=== PATIENT | male | born 1965 | race Caucasian/White ===

== ENCOUNTER 2019-04-27 13:05 | Inpatient (IN) | payer BC ==
[~2019-04-27] VITALS: Ht 191 cm; Wt 80.7 kg
--- NOTE | ~2019-04-27 | EKG ---
[place], [place] ELECTROCARDIOGRAM REPORT NAME: VENANCIO PLUNKETT UNIT #: [id number] ROOM: 506 DOCTOR: LIOR DRAFT REPORT BIRTHDATE: [birth year] [facility] Test Date: 2019-04-27 Test Time: 13:08:03 Pat Name: VENANCIO PLUNKETT Department: Room: 506 Gender: M Gaming Floor Supervisor: : 1965 Requested By: HAYLIE KUHN Order Number: [id number] Reading MD: Angel Pires MD Measurements Intervals [place] Rate: 94 P: 34 LA: 156 QRS: -34 QRSD: 85 T: 59 QT: 341 QTc: 427 Interpretive Statements Sinus rhythm Probable left atrial enlargement Left axis deviation Consider inferoposterior infarct, old No previous ECG available for comparison Electronically Signed On 04-28-2019 4:45:05 PDT by Angel Pires MD CM:EKGRPT:ELECTROCARDIOGRAM REPORT [id number] HAYLIE GUERRA DRAFT REPORT HAYLIE KUHN DO
--- NOTE | ~2019-04-27 | EKG ---
[place], [place] ELECTROCARDIOGRAM REPORT NAME: VENANCIO PLUNKETT UNIT #: [id number] ROOM: 506 DOCTOR: LIOR DRAFT REPORT BIRTHDATE: [birth year] [facility] Test Date: 2019-04-27 Test Time: 18:59:30 Pat Name: VENANCIO PLUNKETT Department: Room: 506 Gender: M Repairer And Checker: Pa Sims : 1965 Requested By: HAYLIE KUHN Order Number: [id number] Reading MD: Angel Pires MD Measurements Intervals [place] Rate: 109 P: 50 MS: 147 QRS: -30 QRSD: 89 T: 50 QT: 327 QTc: 441 Interpretive Statements Sinus tachycardia Multiple premature complexes, vent \T\ supraven Probable left atrial enlargement Left ventricular hypertrophy Electronically Signed On 04-29-2019 4:20:11 PDT by Angel Pires MD CM:EKGRPT:ELECTROCARDIOGRAM REPORT [id number] HAYLIE GUERRA DRAFT REPORT HAYLIE KUHN DO
--- NOTE | ~2019-04-27 | EKG ---
[place], [place] ELECTROCARDIOGRAM REPORT NAME: VENANCIO PLUNKETT UNIT #: ROOM: DOCTOR: LIOR DRAFT REPORT BIRTHDATE: [birth year] [facility] Test Date: 2019-04-27 Test Time: 13:08:03 Pat Name: VENANCIO PLUNKETT Department: Patient ID: ELOH- Room: Gender: Duck Farmer: : 1965 Requested By: HAYLIE KUHN Order Number: [id number] Reading MD: Measurements Intervals [place] Rate: 94 P: 34 NE: 156 QRS: -34 QRSD: 85 T: 59 QT: 341 QTc: 427 Interpretive Statements Sinus rhythm Probable left atrial enlargement Left axis deviation RSR' in V1 or V2, right VCD or RVH No previous ECG available for comparison CM:EKGRPT:ELECTROCARDIOGRAM REPORT [id number] HAYLIE GUERRA DRAFT REPORT HAYLIE KUHN DO
--- NOTE | ~2019-04-27 | ST ---
[place], [place] EXERCISE STRESS TEST REPORT NAME: VENANCIO PLUNKETT UNIT #: [id number] ROOM: 506 DOCTOR: ROSEANNE CASTRO BIRTHDATE: [birth year] DOS: 04/28/2019 INDICATION: Chest pain, coronary artery disease. PROTOCOL: Exercise SPECT myocardial perfusion imaging, Primitivo protocol. Baseline EKG showed sinus rhythm with PVCs. There is normal axis with normal intervals. No resting ST or T-wave abnormalities. Resting pulse is 107, baseline blood pressure was 142/80. The patient exercised for a total of 6 minutes and 30 seconds, achieving a peak heart rate of 158, which is 95% of the predicted maximum. Peak blood pressure is 164/88. The patient reported no symptoms of chest pain. Total workload achieved was 7 METs, below average for age. Stress EKG showed no evidence of ischemia and no arrhythmias were noted. Frequent PVCs were observed. IMPRESSION: 1. No evidence of ischemia on stress EKG. 2. Normal blood pressure response to exercise. 3. Delayed heart rate recovery. 4. Frequent premature ventricular contractions. 5. Below average functional capacity. 6. Nuclear images to be reported separately. Dr. ROSEANNE CASTRO MD CM:STRESS:EXERCISE STRESS TEST REPORT [id number] ROSEANNE CASTRO
--- NOTE | ~2019-04-27 | CON ---
[place], [place] REPORT OF CONSULTATION NAME[id number] UNIT #: [id number] ROOM: 506 DOCTOR: ROSEANNE CASTRO BIRTHDATE: [birth year] DOS: 04/28/2019 CARDIOLOGY CONSULTATION REQUESTING PHYSICIAN: Dr. Elver Peter. REASON FOR CONSULTATION: Chest pain, history of coronary artery disease. HISTORY OF PRESENT ILLNESS: The patient is a 54-year-old gentleman with known coronary artery disease, with an ID in 07/2017, details are unknown and apparently in 08/2017, there was either thrombosis or stenosis of the stent that needed to be "cleaned out." The patient has been on aspirin and clopidogrel since that time. That was done in [place], [place]. He continues to smoke. He presented yesterday after an episode of squeezing chest pain on the left side of the chest that occurred at rest. It was nonradiating. He denied any associated symptoms of shortness of breath, diaphoresis or nausea. It lasted about 4-5 minutes. It had resolved by the time he decided to come to be evaluated. Subsequently, there was some residual sharp pain that would last a couple of seconds, but the squeezing had resolved. Troponins were negative x 3 and the EKG showed no acute changes. A stress test has been ordered by the primary team for this morning. On my evaluation today, he feels well and denies any complaints. He states he was placed on rivaroxaban at some point in the past, but never took it. Additionally, he said he was recently seen in [place], was told he had atrial fibrillation in the Emergency Department, but apparently left AMA. He has been in sinus tachycardia with PVCs and PACs here on the telemetry. REVIEW OF SYSTEMS: Complete review of systems negative except as described above. PAST MEDICAL HISTORY: Coronary artery disease, status post PCI in 07/2017 as described above, unknown what vessel, question of atrial fibrillation recently diagnosed, currently in sinus rhythm, hypertension, tobacco abuse, alcohol abuse. PAST SURGICAL HISTORY: Inguinal hernia repair. SOCIAL HISTORY: Smokes a pack a day. Drinks 4 times a week. Denies drug use. 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 FAMILY HISTORY: Father in his mid-30s from heart attack. Mother in her 60s from some type of heart issues. ALLERGIES: No known drug allergies. HOME MEDICATIONS: Include aspirin 81 mg daily, clopidogrel 75 mg daily, metoprolol succinate 100 mg daily. [place], [place] REPORT OF CONSULTATION NAME: VENANCIO PLUNKETT UNIT #: [id number] [place]OM: [facility] [place] DOCTOR: ROSEANNE CASTRO BIRTHDATE: [birth year] PHYSICAL EXAMINATION: VITAL SIGNS: He is afebrile, pulse 107 irregular, respirations 24, blood pressure 142/106, saturating 93% on room air. GENERAL APPEARANCE: A well-appearing middle-aged male, sitting up in bed, in no distress. ENT: Moist mucous membranes. NECK: Supple. JVP normal. No carotid bruits. RESPIRATORY: Lungs are clear. CARDIOVASCULAR: Tachycardic with a normal rate, occasional extra beats. No murmurs. ABDOMEN: Positive bowel sounds. Soft, nontender. No organomegaly. EXTREMITIES: Warm and well perfused. There is no edema. Moves all extremities. SKIN: No lesions or rashes. NEUROLOGIC: Nonfocal. LABORATORY DATA: Hemoglobin 16.4, platelets 265. Potassium 4.0, creatinine 0.73. Hemoglobin A1c 5.0. LFTs are normal. Troponin negative x 3. LDL cholesterol of 99. Chest x-ray was unremarkable. EKG shows sinus tachycardia with a rate of about [address] or T-wave abnormalities. There were occasional PVCs noted. Serial EKGs showed no changes. IMPRESSION: 1. Chest pain, somewhat atypical in nature. 2. Known coronary artery disease, with history of myocardial infarction in 2017 with PCI, with relatively early stent occlusion requiring repeat PCI. Details of vessel unknown. 3. Questionable history of atrial fibrillation, currently maintaining sinus rhythm. 4. Hypertension. 5. Tobacco abuse. 6. Alcohol abuse. RECOMMENDATIONS: 1. Agree with myocardial perfusion imaging study today. There has been no evidence of acute ID. 2. We will continue his current medications. 3. Would add a statin. 4. Smoking cessation and moderation of alcohol consumption was strongly encouraged to the patient. Further recommendations pending outcome of stress test and the echocardiogram, which have been ordered. Thank you for the consultation. [place], [place] REPORT OF CONSULTATION NAME: VENANCIO PLUNKETT UNIT #: [id number] ROOM: [facility] DOCTOR: ROSEANNE CASTRO BIRTHDATE: [birth year] Dr. ROSEANNE CASTRO MD CM:CONSTR:REPORT OF CONSULTATION 6 04/28/19 1943 interface
--- NOTE | ~2019-04-27 | EKG ---
[place], [place] ELECTROCARDIOGRAM REPORT NAME: VENANCIO PLUNKETT UNIT #: [id number] ROOM: 506 DOCTOR: LIOR DRAFT REPORT BIRTHDATE: [birth year] [facility] Test Date: 2019-04-27 Test Time: 17:36:58 Pat Name: VENANCIO PLUNKETT Department: Room: 506 Gender: M Director Adult: Komal Mayberry : 1965 Requested By: HAYLIE KUHN Order Number: [id number] Reading MD: Angel Pires MD Measurements Intervals [place] Rate: 107 P: 41 IA: 150 QRS: -38 QRSD: 90 T: 58 QT: 322 QTc: 430 Interpretive Statements Sinus tachycardia Left axis deviation No previous ECG available for comparison Electronically Signed On 04-29-2019 4:11:51 PDT by Angel Pires MD CM:EKGRPT:ELECTROCARDIOGRAM REPORT [id number] HAYLIE GUERRA DRAFT REPORT HAYLIE KUHN DO
[2019-04-27 13:11] VITALS: BP 141/96
[2019-04-27 13:31] LABS: BASO % 0.5 % (0.0-1.0); EOS # 0.2 10*3/uL (0.0-0.4); EOS % 2.7 % (1.0-4.0); HEMOGLOBIN 17.3 g/dl (14.0-18.0); LYMPH % 40.2 % (27.0-41.0); MEAN CELL VOLUME 95.9 fl (80.0-94.0); MEAN CORPUSCULAR HGB 32.5 pg (27.0-31.0); MEAN CORPUSCULAR HGB CONC 33.9 g/dl (33.0-37.0); MEAN PLATELET VOLUME 9.3 fl (9.6-12.3); MONO # 0.7 10*3/uL (0.1-1.0); MONO % 9.3 % (3.0-9.0); NEUT # 3.5 10*3/uL (2.3-7.9); NEUT % 46.8 % (47.0-73.0); PLATELET COUNT AUTOMATED 278 10*3/uL (130-400); RED BLOOD COUNT 5.32 10*6/uL (4.50-5.90); RED CELL DISTRI WIDTH 13.2 % (0-14.5); WHITE BLOOD COUNT 7.5 10*3/uL (4.8-10.8)
[2019-04-27 13:42] LABS: ACT PARTIAL THROMBO TIME 27.2 SECONDS (20.0-32.1); INTERNATIONAL NORM RATIO 0.9 (2.0-3.5)
[2019-04-27 13:53] LABS: ALBUMIN 3.5 gm/dl (3.1-4.5); ALKALINE PHOSPHATASE 70 U/L (45-117); BUN 5 mg/dl (7-24); CHLORIDE 109 mmol/L (98-107); SGOT/AST 17 IU/L (3-35); SGPT/ALT 21 U/L (12-78); SODIUM 141 mmol/L (136-145); TOTAL PROTEIN 7.6 gm/dL (6.4-8.2)
[2019-04-27 13:54] LABS: TROPONIN I < 0.015 ng/ml (<0.045)
[2019-04-27 13:55] LABS: LIPASE 161 U/L (73-393)
[2019-04-27 14:15] LABS: URINE AMPHETAMINES < 1000 (1000ng/ml); URINE BARBITURATES < 200 (200ng/ml); URINE BENZODIAZEPINES < 200 (200ng/ml); URINE CANNABINOIDS (THC) < 50 (50ng/ml); URINE COCAINE < 300 (300ng/ml); URINE METHADONE < 300 (300ng/ml); URINE OPIATES < 300 (300ng/ml)
[2019-04-27 14:16] LABS: BILIRUBIN NEGATIVE (NEGATIVE); BLOOD TRACE-LYSED (NEGATIVE); CLARITY CLEAR (CLEAR); COLOR YELLOW (YELLOW); GLUCOSE NEGATIVE (NEGATIVE); KETONE NEGATIVE (NEGATIVE); LEUKO ESTERASE NEGATIVE (NEGATIVE); NITRITE NEGATIVE (NEGATIVE); PH 5.5 (5.0-9.0); SPECIFIC GRAVITY <= 1.005 (1.005-1.030); UROBILINOGEN 0.2 E.U./dl (0.2-1.0)
[2019-04-27 14:20] LABS: URINE PHENCYCLIDINE < 25 (25ng/ml)
[2019-04-27 14:22] LABS: RBC 0-2 rbc/hpf (0-2)
[2019-04-27 15:00] VITALS: BP 128/88
--- NOTE | 2019-04-27 15:10 | NUR ---
SMELL OF CIG SMOKE IN DEPT AND APPEARS TO BE COMING FROM THIS PT'S ROOM. PT DENIES SMOKING. ORALIA NOTIFIED, SPOKE WITH PT AND PLACED PT'S CIGS IN A BIO BAG ON HIS CHART.
--- NOTE | 2019-04-27 15:36 | NUR ---
Nicotine patch applied to left shoulder. Patient requested food and was given. ED director in patient's room.
--- NOTE | 2019-04-27 15:45 | NUR ---
WHEN PT WAS TAKEN TO IMPATIENT ROOM THIS RN NOTED A HOLE IN THE SHEET FROM A CIG. PT CONTINUES TO DENY THAT HE WAS SMOKING IN HIS ROOM .
[2019-04-27 16:15] VITALS: BP 151/93
--- NOTE | 2019-04-27 16:15 | NUR ---
A 54, admitted to , under the services of SANDIE Lacey DO with a diagnosis of CHEST PAIN. Chief complaint is CHEST PAIN. Patient arrived via ambulatory from ER. Monitor applied. Initial assessment completed. Vital signs taken and recorded. SANDIE LACEY DO notified of admission to the unit. Orders received. See assessment for past medical history, medications and allergies. Patient and/or family oriented to unit. [facility]. Clothing/patient valuable form completed. CRISTIAN PERRY
[2019-04-27 16:30] VITALS: BP 136/85
[2019-04-27] MEDS ORDERED: GOOD SENSE ASPI81 M1 PO (17:33)
[2019-04-27] MEDS ORDERED: PLAVIX75 M1 PO (17:34)
[2019-04-27] MEDS ORDERED: METOPROLOL SUC100 M1 PO (17:35)
--- NOTE | 2019-04-27 19:26 | NUR ---
PT HAS NO IDEA WHY HE DOESN'T TAKE THE XARELTO ANYMORE. STATES HE TAKES PLAVEX HIS BLOOD THINNER.
[2019-04-27 20:00] VITALS: BP 154/90
--- NOTE | 2019-04-27 22:46 | NUR ---
ATIVAN WAS GIVEN PER ORDER AFTER IV RESTARTED, FOR ANXIETY. RESTORIL WAS GIVEN FOR INSOMNIA AND NORCO GIVEN PER ORDER FOR HEADACHE PAIN. SEE MAR.
--- NOTE | 2019-04-27 22:48 | NUR ---
IV discontinued IN LEFT ANTECUBITAL BECAUSE OF PAIN. Site symptomatic. Pressure applied. Sterile dressing applied. QASIM BALL
--- NOTE | 2019-04-27 23:00 | NUR ---
IV WAS RESTARTED AND THAT IS WHEN THE ATIVAN WAS GIVEN IV PUSH.
--- NOTE | 2019-04-27 23:40 | NUR ---
PT. WANTING TO GO HOME AND COME BACK IN AM FOR STRESS TEST. EXPLAINED TO PATIENT THAT IF HE WENT HOME NOW HE WOULD NOT BE ABLE TO HAVE STRESS TEST. PT. EXPLAINED IN DETAIL TO PATIENT THAT IT WAS IN HIS BEST INTEREST TO STAY AND HAVE THE STRESS TEST DONE NOW THAT IT IS ALL SCHEDULED. PATIENT AGREED TO STAY THE NIGHT.
[2019-04-28] VITALS: BP 142/100; BP 142/106
--- NOTE | 2019-04-28 00:17 | NUR ---
CALLED DR. LEI AND NOTIFIED HIM OF BP 142/100 AND PT. UNSURE IF HE HAD TAKEN HIS METOPROLOL OR NOT ORDER RECEIVED FOR 5MG IV HYDRALAZINE.
--- NOTE | 2019-04-28 01:00 | NUR ---
PT. AWAKEND ATIVAN RESTORIL EFFECTIVE. HAD TO AWAKEN TO GIVEN IV HYDRALAZINE FOR ELEVATED BP.
--- NOTE | 2019-04-28 02:00 | NUR ---
24 HR chart check completed.
--- NOTE | 2019-04-28 02:49 | NUR ---
ALERT AND WALKING IN HALLWAY AND BACK TO ROOM FEELING VERY ANXIOUS AND WANTED MORE ANTIVAN. ATIVAN GIVEN PER ORDER FOR ANXIETY SEE MAR.
--- NOTE | 2019-04-28 03:15 | NUR ---
PT. AWAKE SITTING UP IN BED LOOKING AT HIS CELL PHONE PT. STATED "CAN YOU TAKE MY IV OUT AND LET ME GO HAVE A CIGARETTE, ALL I WANT IS JUST ONE CIGARETTE, AND THEN I'LL BE BACK. I DON'T UNDERSTAND WHY YOU CAN'T LET ME DO THAT." EXPLAINED TO PATIENT HE'S NOT ALLOWED OUTSIDE TO SMOKE. PT. NOT HAPPY ABOUT NOT BEING ABLE TO GO OUT AND SMOKE WAS TRYING TO ARGUE WITH THIS RN. ATIVAN NOT EFFECTIVE FOR PT. ANXIETY. PT. WANTS TO BE ABLE TO BE DISCHARGED EARLIER ENOUGHT TODAY SO HE CAN GO TO WORK TONIGHT AND WANTS TO BE DONE FIRST. BP RECHECKED AND IS 146/94
[2019-04-28 03:30] VITALS: BP 146/94
--- NOTE | 2019-04-28 04:00 | NUR ---
SLEEPING ATIVAN EFFECTIVE.
--- NOTE | 2019-04-28 06:00 | NUR ---
PT. AWAKE WALKING HALLWAY.
[2019-04-28 06:25] LABS: BASO # 0.1 10*3/uL (0.0-0.1); BASO % 0.6 % (0.0-1.0); EOS # 0.2 10*3/uL (0.0-0.4); EOS % 1.9 % (1.0-4.0); HEMATOCRIT 48.5 % (42.0-52.0); HEMOGLOBIN 16.4 g/dl (14.0-18.0); LYMPH # 1.6 10*3/uL (1.3-4.4); LYMPH % 18.7 % (27.0-41.0); MEAN CELL VOLUME 95.1 fl (80.0-94.0); MEAN CORPUSCULAR HGB 32.2 pg (27.0-31.0); MEAN CORPUSCULAR HGB CONC 33.8 g/dl (33.0-37.0); MEAN PLATELET VOLUME 9.7 fl (9.6-12.3); MONO % 11.2 % (3.0-9.0); NEUT # 5.9 10*3/uL (2.3-7.9); NEUT % 67.4 % (47.0-73.0); PLATELET COUNT AUTOMATED 265 10*3/uL (130-400); WHITE BLOOD COUNT 8.7 10*3/uL (4.8-10.8)
[2019-04-28 06:36] LABS: ALBUMIN 3.6 gm/dl (3.1-4.5); BUN 12 mg/dl (7-24); CHLORIDE 107 mmol/L (98-107); CHOLESTEROL 181 mg/dL (<200); CREATININE 0.73 mg/dL (0.70-1.30); PHOSPHOROUS 3.2 mg/dL (2.5-4.9); SGOT/AST 19 IU/L (3-35); SGPT/ALT 20 U/L (12-78); SODIUM 142 mmol/L (136-145); TOTAL PROTEIN 7.1 gm/dL (6.4-8.2); TRIGLYCERIDES 77 mg/dl (<150); VLDL CHOLESTEROL 15 mg/dL (6-40)
[2019-04-28 06:43] LABS: ALKALINE PHOSPHATASE 74 U/L (45-117); HDL CHOLESTEROL 67 mg/dl (40-60); LDL CHOLESTEROL 99 mg/dL (9-159)
[2019-04-28 07:24] LABS: INTERNATIONAL NORM RATIO 0.9 (2.0-3.5)
[2019-04-28 08:00] VITALS: BP 154/90
[2019-04-28 08:58] LABS: VITAMIN D, 25-HYDROXY 20.8 ng/mL (30-100)
--- NOTE | 2019-04-28 09:00 | NUR ---
PT OUT OF ROOM FOR STRESS TEST.
--- NOTE | 2019-04-28 09:15 | NUR ---
INFORMED CONSENT OBTAINED FOR EXERCISE CARDIOLITE STRESS TEST WITH DR. CASTRO. RESTING EKG SINUS TACHYCARDIA WITH A SUPINE HR OF 100 WITH BP OF 142/80 AND HR OF 118 WITH BP OF 132/78 IN STANDING POSITION. HAS FREQUENT PVC'S. PT COMPLETED 6:30 OF A JOLYNN PROTOCOL WITH COMPLETION OF 30 SECONDS OF STAGE III AT 3.4 MPH AND 14% GRADE. REACHED A PEAK HR OF 158 WHICH IS 95% OF PREDICTED MAX WITH A PEAK BP OF 164/88. HAD NO CHEST PAIN OR ANY EKG CHANGES. TEST TERMINATED BECAUSE OF FATIGUE. HAS A FAIR EXERCISE TOLERANCE. LAST RECOVERY HR OF 138 WITH BP OF 126/70. TO NUCLEAR MEDICINE IN STABLE CONDITION FOR SCANNING.
--- NOTE | 2019-04-28 10:30 | NUR ---
PATIENT HAS HAD CALL LIGHT ON MULTIPLE TIMES WANTING TO LEAVE. PATIENT HAS TAKEN HIS MONITOR OFF A FEW TIMES WELL. THIS RN KEEPS EDUCATING. PATIENT AGITATED WANTING TO LEAVE FOR WORK AT 7PM TONIGHT. STRESS TEST AND ECHO COMPLETE.
--- NOTE | 2019-04-28 11:13 | NUR ---
DR. MADDOX IN ROOM ROUNDING.
--- NOTE | 2019-04-28 11:33 | NUR ---
PATIENT LEFT AMA DR. MADDOX AND AVIATION ELECTRONICS TECHNICIAN AWARE.
--- NOTE | 2019-04-28 12:02 | NUR ---
PT LEFT AMA BEFORE BEING SEEN BY CASE MANAGEMENT.
== END 2019-04-28 11:33 | disposition left against medical advice (07) | DRG 880 ==
LOC: ED 13:05 → EDBD 13:19 → EDHOLD 14:57 → 5E 14:57
PROVIDERS: Emergency Medicine; Student in an Organized Health Care Education/Training Program; ADMIT Internal Medicine
PROC: 4A02XM4 Measurement of Cardiac Total Activity, External Approach (ICD-10-PCS; principal; 2019-04-28)
DX: F41.9 Anxiety disorder, unspecified (principal); R65.10 Systemic inflammatory response syndrome (SIRS) of non-infectious origin without acute organ dysfunction; E44.1 Mild protein-calorie malnutrition; F17.210 Nicotine dependence, cigarettes, uncomplicated; I25.10 Atherosclerotic heart disease of native coronary artery without angina pectoris; K29.70 Gastritis, unspecified, without bleeding; I10 Essential (primary) hypertension; I48.0 Paroxysmal atrial fibrillation; R00.0 Tachycardia, unspecified; F10.10 Alcohol abuse, uncomplicated; R06.82 Tachypnea, not elsewhere classified; E87.8 Other disorders of electrolyte and fluid balance, not elsewhere classified; E83.41 Hypermagnesemia; I48.91 Unspecified atrial fibrillation; Z95.5 Presence of coronary angioplasty implant and graft; Z71.6 Tobacco abuse counseling; Z82.49 Family history of ischemic heart disease and other diseases of the circulatory system; Z68.22 Body mass index [BMI] 22.0-22.9, adult

== ENCOUNTER 2019-05-06 14:29 | Inpatient (IN) | payer BC ==
[~2019-05-06] VITALS: Ht 190.5 cm; Wt 82.1 kg
--- NOTE | ~2019-05-06 | EKG ---
[place], [place] ELECTROCARDIOGRAM REPORT NAME: VENANCIO PLUNKETT UNIT #: [id number] ROOM: 406 DOCTOR: LIOR DRAFT REPORT BIRTHDATE: [birth year] [facility] Test Date: 2019-05-06 Test Time: 17:22:27 Pat Name: VENANCIO PLUNKETT Department: Room: 406 Gender: M Direct Mail Coordinator: : 1965 Requested By: HAYLIE KUHN Order Number: [id number] Reading MD: Virginia Velarde MD Measurements Intervals [place] Rate: 81 P: 48 MO: 158 QRS: -27 QRSD: 92 T: 52 QT: 375 QTc: 436 Interpretive Statements Sinus rhythm Borderline left axis deviation Abnormal R-wave progression, early transition Compared to ECG 04/27/2019 18:59:30 Sinus tachycardia no longer present Left ventricular hypertrophy no longer present Electronically Signed On 05-07-2019 8:15:48 PDT by Virginia Velarde MD CM:EKGRPT:ELECTROCARDIOGRAM REPORT [id number] HAYLIE GUERRA DRAFT REPORT HAYLIE KUHN DO
--- NOTE | ~2019-05-06 | EKG ---
[place], [place] ELECTROCARDIOGRAM REPORT NAME: VENANCIO PLUNKETT UNIT #: [id number] ROOM: 406 DOCTOR: LIOR DRAFT REPORT BIRTHDATE: [birth year] [facility] Test Date: 2019-05-06 Test Time: 20:27:28 Pat Name: VENANCIO PLUNKETT Department: Room: 406 Gender: M Accounts Payable Specialist: : 1965 Requested By: HAYLIE KUHN Order Number: [id number] Reading MD: Virginia Velarde MD Measurements Intervals [place] Rate: 97 P: 45 RI: 152 QRS: -5 QRSD: 84 T: 53 QT: 340 QTc: 432 Interpretive Statements Sinus tachycardia Ventricular premature complex Probable left atrial enlargement RSR' in V1 or V2, right VCD or RVH Compared to ECG 04/27/2019 18:59:30 Ventricular premature complex(es) now present Right ventricular hypertrophy now present RSR' in V1 or V2 now present Left ventricular hypertrophy no longer present Electronically Signed On 05-07-2019 8:16:21 PDT by Virginia Velarde MD CM:EKGRPT:ELECTROCARDIOGRAM REPORT [id number] HAYLIE GUERRA DRAFT REPORT HAYLIE KUHN DO
--- NOTE | ~2019-05-06 | EKG ---
[place], [place] ELECTROCARDIOGRAM REPORT NAME: VENANCIO PLUNKETT UNIT #: [id number] ROOM: 406 DOCTOR: LIOR DRAFT REPORT BIRTHDATE: [birth year] [facility] Test Date: 2019-05-06 Test Time: 14:32:20 Pat Name: VENANCIO PLUNKETT Department: Room: 406 Gender: M New Account Interviewer: : 1965 Requested By: HAYLIE KUHN Order Number: [id number] Reading MD: Virginia Velarde MD Measurements Intervals [place] Rate: 86 P: 51 NE: 151 QRS: -29 QRSD: 89 T: 62 QT: 350 QTc: 419 Interpretive Statements Sinus rhythm Borderline left axis deviation Abnormal R-wave progression, early transition Compared to ECG 04/27/2019 18:59:30 Sinus tachycardia no longer present Left ventricular hypertrophy no longer present Electronically Signed On 05-10-2019 7:42:16 PDT by Virginia Velarde MD CM:EKGRPT:ELECTROCARDIOGRAM REPORT [id number] HAYLIE GUERRA DRAFT REPORT HAYLIE KUHN DO
[~2019-05-06 14:29] MED LIST: GOOD SENSE ASPI81 M1 PO; METOPROLOL SUC100 M1 PO; PLAVIX75 M1 PO
[2019-05-06 14:32] VITALS: BP 131/86
[2019-05-06 15:09] LABS: BASO % 0.5 % (0.0-1.0); EOS # 0.1 10*3/uL (0.0-0.4); EOS % 1.8 % (1.0-4.0); HEMATOCRIT 45.5 % (42.0-52.0); HEMOGLOBIN 15.5 g/dl (14.0-18.0); LYMPH # 2.6 10*3/uL (1.3-4.4); LYMPH % 34.3 % (27.0-41.0); MEAN CELL VOLUME 93.6 fl (80.0-94.0); MEAN CORPUSCULAR HGB 31.9 pg (27.0-31.0); MEAN CORPUSCULAR HGB CONC 34.1 g/dl (33.0-37.0); MEAN PLATELET VOLUME 9.6 fl (9.6-12.3); MONO # 0.7 10*3/uL (0.1-1.0); MONO % 9.5 % (3.0-9.0); NEUT # 4.1 10*3/uL (2.3-7.9); NEUT % 53.6 % (47.0-73.0); PLATELET COUNT AUTOMATED 263 10*3/uL (130-400); RED BLOOD COUNT 4.86 10*6/uL (4.50-5.90); RED CELL DISTRI WIDTH 12.7 % (0-14.5); WHITE BLOOD COUNT 7.6 10*3/uL (4.8-10.8)
[2019-05-06 15:19] LABS: ACT PARTIAL THROMBO TIME 27.8 SECONDS (20.0-32.1); INTERNATIONAL NORM RATIO 0.9 (2.0-3.5)
[2019-05-06 15:26] LABS: ALBUMIN 3.4 gm/dl (3.1-4.5); ALKALINE PHOSPHATASE 69 U/L (45-117); BUN 4 mg/dl (7-24); CHLORIDE 102 mmol/L (98-107); SGOT/AST 21 IU/L (3-35); SGPT/ALT 20 U/L (12-78); SODIUM 135 mmol/L (136-145); TOTAL PROTEIN 6.9 gm/dL (6.4-8.2)
[2019-05-06 15:29] LABS: TROPONIN I < 0.015 ng/ml (<0.045)
[2019-05-06 16:11] VITALS: BP 134/86
[2019-05-06 16:20] VITALS: BP 137/90
[2019-05-06 20:00] VITALS: BP 109/67
[2019-05-07] VITALS: BP 125/81
[2019-05-07 06:33] LABS: BASO % 0.5 % (0.0-1.0); EOS # 0.2 10*3/uL (0.0-0.4); EOS % 2.6 % (1.0-4.0); HEMOGLOBIN 15.5 g/dl (14.0-18.0); LYMPH # 1.5 10*3/uL (1.3-4.4); LYMPH % 19.4 % (27.0-41.0); MEAN CELL VOLUME 94.1 fl (80.0-94.0); MEAN CORPUSCULAR HGB 32.4 pg (27.0-31.0); MEAN CORPUSCULAR HGB CONC 34.4 g/dl (33.0-37.0); MONO # 0.7 10*3/uL (0.1-1.0); NEUT # 5.3 10*3/uL (2.3-7.9); NEUT % 68.2 % (47.0-73.0); PLATELET COUNT AUTOMATED 225 10*3/uL (130-400); RED BLOOD COUNT 4.78 10*6/uL (4.50-5.90); RED CELL DISTRI WIDTH 12.6 % (0-14.5); WHITE BLOOD COUNT 7.8 10*3/uL (4.8-10.8)
[2019-05-07 06:35] LABS: BUN 8 mg/dl (7-24); CHLORIDE 107 mmol/L (98-107); POTASSIUM 4.3 mmol/L (3.5-5.1); SODIUM 140 mmol/L (136-145)
[2019-05-07 08:00] VITALS: BP 120/78
[2019-05-07 12:00] VITALS: BP 121/66
[2019-05-07] MEDS ORDERED: IMDUR SA30 MG PO (13:29)
[2019-05-07] MEDS ORDERED: VISTARIL25 MG PO (13:29)
== END 2019-05-07 13:59 | disposition home or self-care (01) | DRG 281 ==
LOC: ED 14:29 → EDHOLD 15:51 → 4E 15:51
PROVIDERS: Emergency Medicine; Internal Medicine; ADMIT Internal Medicine
DX: I21.9 Acute myocardial infarction, unspecified (principal); E44.1 Mild protein-calorie malnutrition; R51 Headache; I25.10 Atherosclerotic heart disease of native coronary artery without angina pectoris; I10 Essential (primary) hypertension; F17.210 Nicotine dependence, cigarettes, uncomplicated; F41.9 Anxiety disorder, unspecified; I34.0 Nonrheumatic mitral (valve) insufficiency; I77.810 Thoracic aortic ectasia; I48.0 Paroxysmal atrial fibrillation; F10.10 Alcohol abuse, uncomplicated; Z71.6 Tobacco abuse counseling; Z95.5 Presence of coronary angioplasty implant and graft; I25.2 Old myocardial infarction; Z82.49 Family history of ischemic heart disease and other diseases of the circulatory system; Z79.899 Other long term (current) drug therapy; Z79.82 Long term (current) use of aspirin; Z79.02 Long term (current) use of antithrombotics/antiplatelets; Z68.22 Body mass index [BMI] 22.0-22.9, adult

== ENCOUNTER 2019-05-19 00:27 | Emergency (ER) | payer BC ==
[~2019-05-19] VITALS: Ht 190.5 cm; Wt 83.9 kg
[~2019-05-19 00:27] MED LIST changes: +IMDUR SA30 MG PO; +VISTARIL25 MG PO
[2019-05-19 00:47] LABS: BASO % 0.5 % (0.0-1.0); EOS # 0.3 10*3/uL (0.0-0.4); HEMATOCRIT 44.4 % (42.0-52.0); HEMOGLOBIN 15.4 g/dl (14.0-18.0); LYMPH # 2.9 10*3/uL (1.3-4.4); LYMPH % 34.4 % (27.0-41.0); MEAN CELL VOLUME 94.3 fl (80.0-94.0); MEAN CORPUSCULAR HGB 32.7 pg (27.0-31.0); MEAN CORPUSCULAR HGB CONC 34.7 g/dl (33.0-37.0); MEAN PLATELET VOLUME 9.1 fl (9.6-12.3); MONO # 0.5 10*3/uL (0.1-1.0); MONO % 5.6 % (3.0-9.0); NEUT # 4.7 10*3/uL (2.3-7.9); NEUT % 55.1 % (47.0-73.0); PLATELET COUNT AUTOMATED 256 10*3/uL (130-400); RED BLOOD COUNT 4.71 10*6/uL (4.50-5.90); RED CELL DISTRI WIDTH 12.8 % (0-14.5); WHITE BLOOD COUNT 8.5 10*3/uL (4.8-10.8)
[2019-05-19 00:58] LABS: ACT PARTIAL THROMBO TIME 26.2 SECONDS (20.0-32.1); INTERNATIONAL NORM RATIO 0.9 (2.0-3.5)
[2019-05-19 01:04] LABS: ALBUMIN 3.4 gm/dl (3.1-4.5); ALKALINE PHOSPHATASE 78 U/L (45-117); BUN 6 mg/dl (7-24); CHLORIDE 104 mmol/L (98-107); CREATININE 0.74 mg/dL (0.70-1.30); POTASSIUM 3.8 mmol/L (3.5-5.1); SGOT/AST 17 IU/L (3-35); SGPT/ALT 20 U/L (12-78); SODIUM 137 mmol/L (136-145); TOTAL PROTEIN 7.1 gm/dL (6.4-8.2); TROPONIN I < 0.015 ng/ml (<0.045)
== END 2019-05-19 02:12 | disposition left against medical advice (07) ==
LOC: ED 00:27
PROVIDERS: Emergency Medicine
DX: R07.9 Chest pain, unspecified (principal); R51 Headache; H53.149 Visual discomfort, unspecified; I25.2 Old myocardial infarction; I25.10 Atherosclerotic heart disease of native coronary artery without angina pectoris; I10 Essential (primary) hypertension; I48.0 Paroxysmal atrial fibrillation; Z98.61 Coronary angioplasty status; F17.210 Nicotine dependence, cigarettes, uncomplicated; Z79.899 Other long term (current) drug therapy; Z79.82 Long term (current) use of aspirin

== ENCOUNTER 2019-05-25 01:22 | Emergency (ER) | payer BC ==
[~2019-05-25] VITALS: Ht 190.5 cm; Wt 83.9 kg
--- NOTE | ~2019-05-25 | EKG ---
[place], [place] ELECTROCARDIOGRAM REPORT NAME: VENANCIO PLUNKETT UNIT #: [id number] ROOM: DOCTOR: EPIPHANY DRAFT REPORT BIRTHDATE: [birth year] [facility] Test Date: 2019-05-25 Test Time: 01:26:16 Pat Name: VENANCIO PLUNKETT Department: Room: Gender: Wreath Maker: : 1965 Requested By: LEI MONTERO Order Number: [id number] Reading MD: Josseline Chavez MD Measurements Intervals [place] Rate: 88 P: -23 [place]: 156 QRS: -28 QRSD: 95 T: 59 QT: 356 QTc: 431 Interpretive Statements Sinus rhythm Multiple ventricular premature complexes Borderline left axis deviation Abnormal R-wave progression, early transition Compared to ECG 05/06/2019 20:27:28 Sinus tachycardia no longer present Right ventricular hypertrophy no longer present Electronically Signed On 05-25-2019 14:38:16 PDT by Josseline Chavez MD CM:EKGRPT:ELECTROCARDIOGRAM REPORT [id number] LEI GUERRA DRAFT REPORT LEI MONTERO DO
[2019-05-25 01:37] LABS: BASO # 0.1 10*3/uL (0.0-0.1); BASO % 0.7 % (0.0-1.0); EOS # 0.4 10*3/uL (0.0-0.4); EOS % 4.8 % (1.0-4.0); HEMATOCRIT 48.1 % (42.0-52.0); HEMOGLOBIN 16.3 g/dl (14.0-18.0); MEAN CELL VOLUME 95.8 fl (80.0-94.0); MEAN CORPUSCULAR HGB 32.5 pg (27.0-31.0); MEAN CORPUSCULAR HGB CONC 33.9 g/dl (33.0-37.0); MEAN PLATELET VOLUME 9.2 fl (9.6-12.3); MONO # 0.7 10*3/uL (0.1-1.0); MONO % 8.7 % (3.0-9.0); NEUT # 3.5 10*3/uL (2.3-7.9); NEUT % 46.3 % (47.0-73.0); PLATELET COUNT AUTOMATED 280 10*3/uL (130-400); RED BLOOD COUNT 5.02 10*6/uL (4.50-5.90); RED CELL DISTRI WIDTH 13.2 % (0-14.5); WHITE BLOOD COUNT 7.6 10*3/uL (4.8-10.8)
[2019-05-25 01:48] LABS: ACT PARTIAL THROMBO TIME 26.7 SECONDS (20.0-32.1); INTERNATIONAL NORM RATIO 0.9 (2.0-3.5)
[2019-05-25 01:54] LABS: ALBUMIN 3.4 gm/dl (3.1-4.5); ALKALINE PHOSPHATASE 76 U/L (45-117); BUN 6 mg/dl (7-24); CHLORIDE 107 mmol/L (98-107); CREATININE 0.79 mg/dL (0.70-1.30); POTASSIUM 3.7 mmol/L (3.5-5.1); SGOT/AST 16 IU/L (3-35); SGPT/ALT 17 U/L (12-78); SODIUM 139 mmol/L (136-145); TOTAL PROTEIN 7.2 gm/dL (6.4-8.2)
[2019-05-25 02:01] LABS: TROPONIN I < 0.015 ng/ml (<0.045)
== END 2019-05-25 03:00 | disposition left against medical advice (07) ==
LOC: ED 01:22
PROVIDERS: Emergency Medicine
DX: R07.89 Other chest pain (principal); R51 Headache; I25.10 Atherosclerotic heart disease of native coronary artery without angina pectoris; I10 Essential (primary) hypertension; F17.210 Nicotine dependence, cigarettes, uncomplicated; I25.2 Old myocardial infarction; I48.91 Unspecified atrial fibrillation; Z95.5 Presence of coronary angioplasty implant and graft; Z79.82 Long term (current) use of aspirin; Z79.899 Other long term (current) drug therapy

== ENCOUNTER 2019-06-29 10:10 | Emergency (ER) | payer BC ==
[~2019-06-29] VITALS: Ht 190.5 cm; Wt 83.9 kg
[2019-06-29 10:32] LABS: BASO % 0.3 % (0.0-1.0); EOS # 0.3 10*3/uL (0.0-0.4); HEMATOCRIT 50.5 % (42.0-52.0); HEMOGLOBIN 16.7 g/dl (14.0-18.0); LYMPH # 2.2 10*3/uL (1.3-4.4); MEAN CELL VOLUME 94.7 fl (80.0-94.0); MEAN CORPUSCULAR HGB 31.3 pg (27.0-31.0); MEAN CORPUSCULAR HGB CONC 33.1 g/dl (33.0-37.0); MEAN PLATELET VOLUME 9.1 fl (9.6-12.3); MONO # 0.6 10*3/uL (0.1-1.0); MONO % 8.3 % (3.0-9.0); NEUT # 3.6 10*3/uL (2.3-7.9); NEUT % 53.7 % (47.0-73.0); PLATELET COUNT AUTOMATED 251 10*3/uL (130-400); RED BLOOD COUNT 5.33 10*6/uL (4.50-5.90); RED CELL DISTRI WIDTH 14.2 % (0-14.5); WHITE BLOOD COUNT 6.8 10*3/uL (4.8-10.8)
[2019-06-29 10:42] LABS: ACT PARTIAL THROMBO TIME 26.5 SECONDS (20.0-32.1); INTERNATIONAL NORM RATIO 0.9 (2.0-3.5)
[2019-06-29 10:48] LABS: ALBUMIN 3.5 gm/dl (3.1-4.5); ALKALINE PHOSPHATASE 63 U/L (45-117); BUN 5 mg/dl (7-24); CHLORIDE 109 mmol/L (98-107); CREATININE 0.88 mg/dL (0.70-1.30); POTASSIUM 4.3 mmol/L (3.5-5.1); SGOT/AST 17 IU/L (3-35); SGPT/ALT 22 U/L (12-78); SODIUM 142 mmol/L (136-145); TOTAL PROTEIN 7.3 gm/dL (6.4-8.2)
[2019-06-29 10:50] LABS: TROPONIN I < 0.015 ng/ml (<0.045)
== END 2019-06-29 11:50 | disposition left against medical advice (07) ==
LOC: ED 10:10
PROVIDERS: Emergency Medicine
DX: R07.9 Chest pain, unspecified (principal); I25.2 Old myocardial infarction; F17.200 Nicotine dependence, unspecified, uncomplicated; Z79.899 Other long term (current) drug therapy; Z79.82 Long term (current) use of aspirin

== ENCOUNTER 2019-11-09 14:10 | Inpatient (IN) | payer BC ==
[~2019-11-09] VITALS: Ht 190.5 cm; Wt 81.6 kg
--- NOTE | 2019-11-09 15:10 | NUR ---
A 54, admitted to , under the services of EUGENIA Mock DO with a diagnosis of ETOH WITHDRAWAL. Chief complaint is ANXIETY. Patient arrived via AMBULATORY from [place]. Monitor applied. Initial assessment completed. Vital signs taken and recorded. EUGENIA MOCK DO notified of admission to the unit. Orders received. See assessment for past medical history, medications and allergies. Patient and/or family oriented to unit. [facility] visitation policy reviewed. Clothing/patient valuable form completed. GARY FRANKLIN
[2019-11-09] MEDS ORDERED: LIPITOR80 MG PO (15:19)
--- NOTE | 2019-11-09 15:39 | NUR ---
PATIENT MEETS [facility]. CIWA=18. PATIENT WANTS TO FOLLOW UP WITH [facility] MEETINGS FOR HIS AFTERCARE PLAN. LYSSA FRANCO B.A. UNIT ASSEMBLER
[2019-11-09 16:00] VITALS: BP 102/54
--- NOTE | 2019-11-09 16:00 | NUR ---
PT MEDICATED WITH IV ATIVAN FOR C/O ANXIETY WILL MONITOR
[2019-11-09 16:05] LABS: BASO % 0.3 % (0.0-1.0); EOS # 0.3 10*3/uL (0.0-0.4); EOS % 3.4 % (1.0-4.0); HEMATOCRIT 44.8 % (42.0-52.0); HEMOGLOBIN 14.9 g/dl (14.0-18.0); LYMPH # 2.2 10*3/uL (1.3-4.4); LYMPH % 29.4 % (27.0-41.0); MEAN CELL VOLUME 97.8 fl (80.0-94.0); MEAN CORPUSCULAR HGB 32.5 pg (27.0-31.0); MEAN CORPUSCULAR HGB CONC 33.3 g/dl (33.0-37.0); MEAN PLATELET VOLUME 9.4 fl (9.6-12.3); MONO # 0.5 10*3/uL (0.1-1.0); MONO % 7.4 % (3.0-9.0); NEUT # 4.3 10*3/uL (2.3-7.9); NEUT % 59.1 % (47.0-73.0); PLATELET COUNT AUTOMATED 235 10*3/uL (130-400); RED BLOOD COUNT 4.58 10*6/uL (4.50-5.90); RED CELL DISTRI WIDTH 12.9 % (0-14.5); WHITE BLOOD COUNT 7.3 10*3/uL (4.8-10.8)
[2019-11-09 16:19] LABS: ALBUMIN 3.1 gm/dl (3.1-4.5); ALKALINE PHOSPHATASE 74 U/L (45-117); BUN 6 mg/dl (7-24); CHLORIDE 104 mmol/L (98-107); CREATININE 0.62 mg/dL (0.70-1.30); POTASSIUM 3.8 mmol/L (3.5-5.1); SGOT/AST 18 IU/L (3-35); SGPT/ALT 17 U/L (12-78); SODIUM 137 mmol/L (136-145); TOTAL PROTEIN 6.6 gm/dL (6.4-8.2)
[2019-11-09 16:21] LABS: INTERNATIONAL NORM RATIO 0.9 (2.0-3.5)
[2019-11-09 16:21] LABS: BILIRUBIN NEGATIVE (NEGATIVE); BLOOD NEGATIVE (NEGATIVE); CLARITY SL CLOUDY (CLEAR); COLOR YELLOW (YELLOW); GLUCOSE NEGATIVE (NEGATIVE); KETONE NEGATIVE (NEGATIVE); LEUKO ESTERASE NEGATIVE (NEGATIVE); NITRITE NEGATIVE (NEGATIVE); SPECIFIC GRAVITY 1.005 (1.005-1.030); UROBILINOGEN 0.2 E.U./dl (0.2-1.0)
[2019-11-09 16:27] LABS: BACTERIA TRACE; EPITHELIAL CELLS 0-2; WBC 0-2 wbc/hpf (0-5)
[2019-11-09 16:28] LABS: URINE AMPHETAMINES < 1000 (1000ng/ml); URINE BARBITURATES < 200 (200ng/ml); URINE BENZODIAZEPINES > 200 (200ng/ml); URINE CANNABINOIDS (THC) < 50 (50ng/ml); URINE COCAINE < 300 (300ng/ml); URINE METHADONE < 300 (300ng/ml); URINE OPIATES < 300 (300ng/ml)
[2019-11-09 16:29] LABS: URINE PHENCYCLIDINE < 25 (25ng/ml)
--- NOTE | 2019-11-09 17:16 | NUR ---
PT RESTING IN BED, EYES CLOSED. ATIVAN APPEARS EFFECTIVE. WILL MONITOR
[2019-11-09 20:00] VITALS: BP 113/61
--- NOTE | 2019-11-09 20:12 | NUR ---
MEDICATED WITH PRN ATIVAN FOR ANXIOUSNESS AND WITHDRAWAL SYMPTOMS. ALSO MEDICATED WITH ROBAXIN FOR MUSCLE ACHES. WILL MONITOR
--- NOTE | 2019-11-09 22:24 | NUR ---
MEDICATED WITH PRN VISTARIL FOR ANXIETY AND NICOTINE PATCH PER REQUEST. WILL MONITOR
--- NOTE | 2019-11-09 23:43 | NUR ---
24 HR chart check completed.
[2019-11-10] VITALS: BP 156/83
--- NOTE | 2019-11-10 00:04 | NUR ---
patient refusing scheduled librium. requested this rn to leave the medication at the bedside and he would "take it when he feels like it". this rn told the patient that I cannot leave medication at the bedside and I need to see the patient swallow the pills. patient states "then just take it back because i do not want it". educated on the importance of taking the medications for withdrawals. patient verbalized understanding and continues to refuse.
--- NOTE | 2019-11-10 05:18 | NUR ---
DR LEI AWARE OF PATIENT GOING AMA
--- NOTE | 2019-11-10 05:28 | NUR ---
NURSING AIRPORT ELECTRICIAN AWARE OF PATIENT LEAVING AGAINST MEDICAL ADVICE. HEP LOCK REMOVED WITH CATHETER INTACT. TELE MONITOR REMOVED
--- NOTE | 2019-11-10 05:29 | NUR ---
PATIENT WAS EDUCATED ON THE IMPORTANCE OF STAYING TO COMPLETE HIS MEDICATION. VERBALIZED UNDERSTANDING AND STATES HIS RIDE WILL BE HERE IN 15 MINUTES.
--- NOTE | 2019-11-10 05:37 | NUR ---
PATIENT AMBULATED OUT WITH BELONGINGS INTACT.
== END 2019-11-10 05:37 | disposition left against medical advice (07) | DRG 894 ==
LOC: 4E 14:10
PROVIDERS: Internal Medicine; ADMIT Family Medicine
DX: F10.230 Alcohol dependence with withdrawal, uncomplicated (principal); E44.0 Moderate protein-calorie malnutrition; Z53.29 Procedure and treatment not carried out because of patient's decision for other reasons; F41.9 Anxiety disorder, unspecified; F17.210 Nicotine dependence, cigarettes, uncomplicated; I25.10 Atherosclerotic heart disease of native coronary artery without angina pectoris; I10 Essential (primary) hypertension; I48.0 Paroxysmal atrial fibrillation; E78.5 Hyperlipidemia, unspecified; Z68.22 Body mass index [BMI] 22.0-22.9, adult; I25.2 Old myocardial infarction; Z95.5 Presence of coronary angioplasty implant and graft; Z82.49 Family history of ischemic heart disease and other diseases of the circulatory system; Z79.82 Long term (current) use of aspirin; Z79.899 Other long term (current) drug therapy; Z71.6 Tobacco abuse counseling